=== PATIENT | male | born 2000 | race Hispanic/Latino ===

== ENCOUNTER 2020-06-06 15:53 | Emergency (ER) | payer OTHER ==
[~2020-06-06] VITALS: Ht 177.8 cm; Wt 89.0 kg
[2020-06-06] MEDS ORDERED: IBUP200C25 PO (16:13)
[2020-06-06] MEDS ORDERED: METAL LOCK LOOP XX ONE (16:16)
[2020-06-06 17:37] VITALS: BP 128/55
== END 2020-06-06 17:39 | disposition home or self-care (01) ==
LOC: M ED 15:53
DX: M25.562 Pain in left knee (principal); M25.572 Pain in left ankle and joints of left foot

== ENCOUNTER 2020-08-18 13:19 | Emergency (ER) | payer OTHER ==
[~2020-08-18] VITALS: Ht 177.8 cm; Wt 86.4 kg
[~2020-08-18 13:19] MED LIST: IBUP200C25 PO
--- NOTE | 2020-08-18 13:58 | REP ---
INDICATION: CHEST PAIN. COMPARISON: None. TECHNIQUE: Portable FINDINGS: The technique utilized in obtaining the radiograph has magnified the cardiac silhouette and accentuated the interstitial markings. The superior mediastinal structures are midline. The cardiac silhouette is unremarkable in size, shape, and position. The diaphragmatic surfaces of the lungs are regular, and the costophrenic angles are clear. The pulmonary welsh are clear. The imaged osseous structures are intact. IMPRESSION: There is no acute cardiopulmonary disease. <Electronically signed by Luis Miguel Lozano > 08/18/20 [id number]
[2020-08-18 14:52] LABS: BASO % 0.3 % (0.0-1.0); EOS # 0.2 10^3/uL (0.0-0.5); EOS % 3.9 % (0.0-3.0); HEMATOCRIT 42.2 % (42.0-52.0); HEMOGLOBIN 14.2 g/dl (13.5-17.5); LYMPH # 2.1 10^3/uL (1.5-5.0); MEAN CORPUSCULAR HEMOGLOBIN 28.5 pg (27.0-33.0); MEAN CORPUSCULAR HGB CONC 33.6 g/dl (32.0-36.5); MEAN CORPUSCULAR VOLUME 84.6 fl (80.0-96.0); MONO # 0.6 10^3/uL (0.0-0.8); NEUTROPHILS # 3.2 10^3/uL (1.5-8.5); NEUTROPHILS % 52.5 % (36.0-66.0); PLATELET COUNT, AUTOMATED 162 10^3/uL (150-450); RED BLOOD COUNT 4.99 10^6/uL (4.30-6.10); WHITE BLOOD COUNT 6.1 10^3/uL (4.0-10.0)
[2020-08-18 15:02] LABS: INR 1.06
[2020-08-18 15:23] LABS: FREE THYROXINE INDEX 3.4 % (1.4-3.8); THYROID STIMULATING HORMONE 1.13 uIU/ML (0.358-3.740); THYROXINE (T4) 10.3 UG/DL (4.5-12.0)
[2020-08-18 15:31] LABS: ALT/SGPT 27 U/L (12-78); BILIRUBIN,DIRECT 0.2 MG/DL (0.0-0.2); BILIRUBIN,TOTAL 0.6 MG/DL (0.2-1.0); BLOOD UREA NITROGEN 15 MG/DL (7-18); CALCIUM LEVEL 8.8 MG/DL (8.5-10.1); CARBON DIOXIDE LEVEL 28 MEQ/L (21-32); CHLORIDE LEVEL 108 MEQ/L (98-107); CK-MB VALUE MASS 2.7 NG/ML (<3.6); CPK CREATINE PHOSPHOKINASE 557 U/L (39-308); GLOMERULAR FILTRATION RATE > 60.0 (>60); GLUCOSE, FASTING 73 MG/DL (70-100); LIPASE 74 U/L (73-393); MB/CK RELATIVE INDEX 0.48 (< OR =4); SODIUM LEVEL 141 MEQ/L (136-145); TOTAL PROTEIN 6.9 GM/DL (6.4-8.2); TROPONIN I < 0.02 NG/ML (< 0.10)
[2020-08-18 15:38] LABS: AMPHETAMINES LEVEL URINE NEGATIVE (NEGATIVE); BARBITURATES URINE NEGATIVE (NEGATIVE); BENZODIAZEPINES URINE NEGATIVE (NEGATIVE); CANNABINOIDS URINE NEGATIVE (NEGATIVE); COCAINE METABOLITE URINE NEGATIVE (NEGATIVE); METHADONE URINE NEGATIVE (NEGATIVE); OPIATES URINE NEGATIVE (NEGATIVE); PHENCYCLIDINE URINE NEGATIVE (NEGATIVE)
[2020-08-18] MEDS ORDERED: FLECAINIDE 50MG TABLET PO STA (17:24)
[2020-08-18] MEDS ORDERED: ASPI81TA26 PO (17:29)
[2020-08-18] MEDS ORDERED: ASPIRIN 81 MG CHEW TABLET PO ONE (17:30)
--- NOTE | 2020-08-18 20:56 | ECGEPIP ---
[facility] - ED Test Date: 2020-08-18 Pat Name: JUNG ALFONSO Department: Room: - Gender: Male Social Science Research Assistant: VC : 2000 Requested By: Rita Dunn Order Number: [id number] Reading MD: Rita Dunn Measurements Intervals [place] Rate: 97 P: MA: QRS: 76 QRSD: 88 T: 49 QT: 348 QTc: 441 Interpretive Statements atrial fibrillation pac pvc NSTTW abnormalities no prior Electronically Signed on 08-18-2020 20:56:02 EDT by Rita Dunn
--- NOTE | 2020-08-18 21:05 | ECGEPIP ---
[facility] - ED Test Date: 2020-08-18 Pat Name: JUNG ALFONSO Department: Room: - Gender: Male Paper Baler: cynthia : 2000 Requested By: LIA Riley Order Number: [id number] Reading MD: Rita Dunn Measurements Intervals [place] Rate: 61 P: 72 RI: 170 QRS: 69 QRSD: 90 T: 43 QT: 422 QTc: 424 Interpretive Statements Normal sinus rhythm with sinus arrhythmia rhythm change compared 13:27 Electronically Signed on 08-18-2020 21:05:12 EDT by Rita Dunn
[2020-08-18 23:45] VITALS: BP 137/77
--- NOTE | 2020-08-19 07:06 | ECHO ---
ECHOCARDIOGRAM DATE OF PROCEDURE: 08/18/2020 Age: 20 Gender: Male Height: 70 inches Weight: 189 pounds Body surface area: 2.40 m2 PATIENT LOCATION: Outpatient. REFERRING PHYSICIAN: Rita Dunn M.D. INDICATION: New onset atrial fibrillation. Abnormal EKG. MEASUREMENTS: 2D Measurements: RV 4.0 cm LV 4.2 cm Septum 1.0 cm Posterior wall 1.0 cm Aortic Root 3.1 cm LA 3.4 cm LVEF 70% Doppler Measurements: AV 1.1 m/s LVOT 0.91 m/s LVOT diameter 2.1 cm MV-E 90 Early mitral deceleration time 227 msec PV 0.9 m/s Pulmonary artery acceleration time 121 msec PASP 28 mmHg IVC 1.6 cm COMMENTS: Underlying atrial fibrillation with mostly controlled ventricular response. No intraventricular conduction disturbance. M-mode and two-dimensional echocardiography was performed with pulse, continuous wave, color flow Doppler studies. Normal left ventricular size, wall thickness, and hyperkinetic wall motion. Normal left atrial size. Unable to define left ventricular diastolic function with atrial fibrillation, but his current estimated mean left atrial pressure was within normal limits with average E/E prime ratio of 5.8 and estimated mean left atrial pressure of 9 mmHg. Normal right heart chamber sizes and motion and estimated pulmonary arterial pressure. Normal IVC size and collapse against an elevated central venous pressure. Normal aortic dimensions. Normal appearing and functioning valvular structures. No apparent intracardiac mass or pericardial effusion. A preliminary report of this study was relayed to Dr. Hartman in the emergency room as soon as the study was completed. ERICA
[2020-08-20 16:09] LABS: Lyme Disease IgG/IgM Antibodie <0.91 ISR (0.00-0.90); Lyme Disease IgM Ab Quantitati <0.80 index (0.00-0.79)
== END 2020-08-19 00:02 | disposition home or self-care (01) ==
LOC: EDBD 13:19 → M ED 13:19
DX: I48.91 Unspecified atrial fibrillation (principal); R94.31 Abnormal electrocardiogram [ECG] [EKG]

== ENCOUNTER 2020-12-21 11:34 | Emergency (ER) | payer OTHER ==
[~2020-12-21] VITALS: Ht 188 cm; Wt 97.7 kg
[~2020-12-21 11:34] MED LIST changes: +ASPI81TA26 PO
--- NOTE | 2020-12-21 12:12 | REP ---
INDICATION: CHEST PAIN COMPARISON: 08/18/2020 TECHNIQUE: Portable AP view of the chest FINDINGS: The mediastinum and cardiac silhouette are stable and within normal limits for portable technique. The lung welsh are clear without acute consolidation, effusion, or pneumothorax. Skeletal structures are intact. IMPRESSION: No acute cardiopulmonary process appreciated. <Electronically signed by Shaheen Aguirre > 12/21/20 [id number]
[2020-12-21 12:35] LABS: BASO % 0.1 % (0.0-1.0); EOS % 0.2 % (0.0-3.0); HEMATOCRIT 41.3 % (42.0-52.0); HEMOGLOBIN 14.3 g/dl (13.5-17.5); LYMPH # 2.5 10^3/uL (1.5-5.0); LYMPH % 19.8 % (24.0-44.0); MEAN CORPUSCULAR HEMOGLOBIN 28.5 pg (27.0-33.0); MEAN CORPUSCULAR HGB CONC 34.6 g/dl (32.0-36.5); MEAN CORPUSCULAR VOLUME 82.4 fl (80.0-96.0); MONO # 1.2 10^3/uL (0.0-0.8); MONO % 9.7 % (2.0-8.0); NEUTROPHILS # 8.8 10^3/uL (1.5-8.5); NEUTROPHILS % 69.8 % (36.0-66.0); PLATELET COUNT, AUTOMATED 184 10^3/uL (150-450); RED BLOOD COUNT 5.01 10^6/uL (4.30-6.10); WHITE BLOOD COUNT 12.6 10^3/uL (4.0-10.0)
[2020-12-21 12:45] LABS: INR 1.04
[2020-12-21] MEDS ORDERED: PERCOCET 5MG/325MG TAB PO ONE (12:50)
[2020-12-21] MEDS ORDERED: FLECAINIDE 50MG TABLET PO STA (12:55)
[2020-12-21 13:09] LABS: RSV AMPLIFICATION NEGATIVE (NEGATIVE)
[2020-12-21 13:10] LABS: ALBUMIN 3.8 GM/DL (3.2-5.2); ALT/SGPT 28 U/L (12-78); BILIRUBIN,DIRECT 0.1 MG/DL (0.0-0.2); BILIRUBIN,TOTAL 0.4 MG/DL (0.2-1.0); BLOOD UREA NITROGEN 12 MG/DL (7-18); CALCIUM LEVEL 9.3 MG/DL (8.5-10.1); CARBON DIOXIDE LEVEL 29 MEQ/L (21-32); CHLORIDE LEVEL 107 MEQ/L (98-107); CK-MB VALUE MASS 1.1 NG/ML (<3.6); CPK CREATINE PHOSPHOKINASE 552 U/L (39-308); GLOMERULAR FILTRATION RATE > 60.0 (>60); GLUCOSE, FASTING 91 MG/DL (70-100); LIPASE 67 U/L (73-393); SODIUM LEVEL 141 MEQ/L (136-145); TOTAL PROTEIN 6.8 GM/DL (6.4-8.2); TROPONIN I < 0.02 NG/ML (< 0.10)
[2020-12-21 17:45] VITALS: BP 118/60
--- NOTE | 2020-12-22 17:33 | ECGEPIP ---
[facility] - ED Test Date: 2020-12-21 Pat Name: JUNG ALFONSO Department: Room: - Gender: Male Investigations Manager: BENOIT : 2000 Requested By: Rita Dunn Order Number: [id number] Reading MD: Rita Dunn Measurements Intervals [place] Rate: 90 P: MO: QRS: 68 QRSD: 90 T: 33 QT: 370 QTc: 452 Interpretive Statements Atrial fibrillation with premature ventricular or aberrantly conducted complexes Nonspecific T wave abnormality 08/18/20 sinsu rhythm Electronically Signed on 12-22-2020 17:33:01 EDT by Rita Dunn
--- NOTE | 2020-12-22 17:37 | ECGEPIP ---
[facility] - ED Test Date: 2020-12-21 Pat Name: JUNG ALFONSO Department: Room: - Gender: Male Emergency Services Professional: BENOIT : 2000 Requested By: Rita Dunn Order Number: [id number] Reading MD: Rita Dunn Measurements Intervals [place] Rate: 75 P: 63 ND: 168 QRS: 77 QRSD: 90 T: 53 QT: 404 QTc: 451 Interpretive Statements Normal sinus rhythm 12/21/20 atrial fibrillation Electronically Signed on 12-22-2020 17:37:12 EDT by Rita Dunn
== END 2020-12-21 18:39 | disposition home or self-care (01) ==
LOC: M ED 11:34
DX: I48.91 Unspecified atrial fibrillation (principal); Z79.82 Long term (current) use of aspirin